=== PATIENT | male | born 1975 | race Caucasian/White ===

== ENCOUNTER 2018-12-17 16:39 | Inpatient (IN) ==
--- NOTE | 2018-12-17 16:41 | Pre-Sedation Evaluation ---
Pre-sedation evaluation - Pre-sedation checklist Date of procedure: 12/17/18 Procedure: [facility] Recent Vitals: vs as documented in emr H&P (including ROS) documented in medical record: Yes Previous reaction to sedatives/anesthetics: No Dietary Status: unknown Airway Assessment: Patient can open mouth completely, TMJ function normal ASA Classification *see protocol: CLASS V-Morbid complications, operation only hope of survival, [id number] to any of the above to indicate emergent Plan of Care: Pt appropriate candidate for procedure/moderate/conscious sedation, Risks/benefits of procedure/sedation discussed w/ patient/family, If not NPO; Risk of intake outweiged by necessity to perform procedure Cardiac Registry (Cardio Only) - Functional Capacity Functional Capacity: >=4 METS with symptoms - Clincal Frailty Scale Clinical Frailty Scale: Managing Well
[2018-12-17] MEDS ORDERED: *HR* FentaNYL (PF) 100 MCG/2 ML VIAL ONE (16:43)
[2018-12-17] MEDS ORDERED: Verapamil 5 MG/2 ML VIAL ONE (16:43)
[2018-12-17] MEDS ORDERED: *HR* Midazolam HCl 2 MG/2 ML VIAL ONE (16:43)
[2018-12-17] MEDS ORDERED: Heparin 1,000 UNITS/500 mL 500 ML ONE (16:44)
[2018-12-17] MEDS ORDERED: *HR* Heparin 10,000 UNIT/10 ML VIAL ONE (16:44)
[2018-12-17] MEDS ORDERED: ISOVUE-370 200 ML INFUS..BTL ONE (16:44)
[2018-12-17] MEDS ORDERED: Tirofiban 12.5 MG/250ML 0 MG/0 ML BAG ONE (16:44)
[2018-12-17] MEDS ORDERED: Nitroglycerin 1,000 MCG/10 ML VIAL IV ONE (16:44)
[2018-12-17] MEDS ORDERED: 0.9 % Sodium Chloride 1,000 ML ONE (16:44)
--- NOTE | 2018-12-17 16:44 | Cardiology History & Physical ---
Date of Encounter: 12/18/18 Time of Encounter: 16:40 Assessment and Plan (1) ST elevation (STEMI) myocardial infarction Current Visit: No Status: Acute A/R/B of [facility] dw patient including 1% chance of recurrent GA//CVA/CABG/JIA/bleeding. Pt aware and agreeable with proceeding. DAPT, heparin, EF assessment, cardiac rehab. Total critical care time: 90 minutes The assessment and plan as outlined above was discussed with the patient and/or family members who expressed understanding and agreement. All questions were answered. Qualifiers: Involved coronary artery: left circumflex coronary artery Qualified Code(s): I21.21 - ST elevation (STEMI) myocardial infarction involving left circumflex coronary artery (2) Nicotine dependence Current Visit: No Status: Acute Smoking cessation counseled. The assessment and plan as outlined above was discussed with the patient and/or family members who expressed understanding and agreement. All questions were answered. Qualifiers: Nicotine product type: cigarettes Substance use status: uncomplicated Q ualified Code(s): F17.210 - Nicotine dependence, cigarettes, uncomplicated (3) HTN (hypertension) Current Visit: Yes Status: Acute The assessment and plan as outlined above was discussed with the patient and/or family members who expressed understanding and agreement. All questions were answered. Qualifiers: Hypertension type: essential hypertension Qualified Code(s): I10 - Essential (primary) hypertension History of Present Illness Chief complaint: chest pain HPI: Mr. Kelley is a 43 year old male with no previous cardiac history, HTN, smoker presenting with acute onset left sided chest pain that is severe and associated with diaphoresis. It worsened in ED despite aspirin and EKG concerning for lateral STEMI. cath lab technologist activated. Past Med Surg Social Fam HX - Past Medical History Medical history: other Additional medical history: varicose veins-BLE,obese edema,SOB,chest pain,tobacco. Psychiatric history: no psych history - Past Surgical History Additional surgical history: rotator cuff tear repair right,Bilateral lef vein stripping,heart cath-no stents - Social History Smoking Status: Light tobacco smoker Smokeless Tobacco Status: No Alcohol use: rarely Drug use: none Medications and Allergies Gabapentin [Neurontin] 600 mg PO TID 04/07/17 [History] OxyCODONE Immed Rel [Roxicodone 5 MG] 5 mg PO Q6HR PRN #30 tablet 04/08/17 [Rx] Allergy/AdvReac Type Severity Reaction Status Date / Time No Known Allergies Allergy Verified 04/07/17 06:53 All Systems Review: The remainder of the systems were reviewed and are negative - Constitutional Constitutional: no chills, no fatigue - EENT Eyes: no blurred vision, no loss of vision Nose, mouth and throat: no dysphagia, no odynophagia - Cardiovascular Cardiovascular: chest pain at rest, chest pain with exertion - Respiratory Respiratory: no hemoptysis, no wheezing - Gastrointestinal Gastrointestinal: no hematemesis, no hematochezia - Genitourinary Genitourinary: no hematuria, no nocturia - Musculoskeletal Musculoskeletal: no abnormal gait, no back pain - Integumentary Integumentary: no rash, no unusual bruising - Neurological Neurological: no syncope, no tingling - Psychiatric Psychiatric: no hallucinations, no panic attacks - Hematological/Lymphatic Hematologic/Lymphatic: no easy bleeding, no easy bruising Physical Examination General: Conversant, Other (mild distress) HEENT: Atraumatic Neck: No JVD Cardiac: Reg Rate and Rhythm Lungs: Normal Breath Sounds Neuro: Alert and responsive Abdomen: Soft Skin: No rashes noted on visualized skin Musculoskeletal: No Chest Wall Tenderness Extremities: No Edema Results 12/18/18 04:03 12/18/18 05:45 - EKG Interpretation EKG results cardiology: personally reviewed, sinus rhythm (lateral current of injury w inf st dep)
[2018-12-17] MEDS ORDERED: Nitroglycerin 0.4 MG TAB.SUBL SL PRN (16:55)
[2018-12-17] MEDS ORDERED: Ondansetron 4 MG/2 ML VIAL IVP PRN (16:55)
--- NOTE | 2018-12-17 18:42 | Invasive Diagnostic Lab Proc ---
Name: Tj Kelley Date of Study: 12/17/2018 Date: 1975 Ht: 70.1in Medical Record#: [id number] Age: 43 Wt: 249.12lb Gender: Male BSA: 2.29 Order #: [id number] BMI: 35.66 Physicians Procedure Physician: Matt Wallace MD, [facility] Referring MD: Referring MD: Staff Name Position Time In Sites, Rosie RT (R) Scrub 05:02 PM Talon Moore RT (R) Monitor 05:03 PM Soren Downing RN Jet Engine Mechanic 05:03 PM Tanisha Miles RN Jet Engine Mechanic 05:03 PM Indications Indication ACS <= 24 hrs Procedures Performed Procedure L HRT ARTERY/VENTRICLE ANGIO Pre-Procedure Checklist Informed consent is complete signed and on chart. H&P is on chart. ID band is on and ID verified with patient. Patient NPO for procedure The procedure was described for the patient and questions were answered. Blood Pressure: 166/105 ECG is on chart. Rhythm: NSR Plan of Care Patient will tolerate the procedure without complications. Adequate level of comfort will be maintained. Hemodynamics will remain stable Patient will recover from procedure without complications. Respiratory function will be maintained. Cardiac rhythm will remain stable. Patient temperature will be maintained. Patient and/or family have verbalized understanding of the procedure. Patient Education Chief Complaint/Reason for Test: Cardiac Cath Developmental Category: Adult (18-64 years) Developmentally Appropriate for Age: Yes Learning Barriers: None Education Needs: Procedure Education Method: Verbal Information Taught: Cardiac Cath Educational Evaluation: Able to repeat information Intravenous Access Time IV Size Location DC'd Fluid/Drip Rate Units RN 06:05 PM 18g 1 1/4" Patent On Arrival Rt Antecubital 06:05 PM 20g 1 1/4" Patent On Arrival Lt Antecubital 0.9NaCl ml/hr Soren Downing RN Allergies No Known Allergies Vital Signs Time BP (mmHg) HR (bpm) O2 Sat. RR (bpm) LOC / % 5 = Fully awake and oriented or at pre-proc level 06:03 PM / % 5 = Fully awake and oriented or at pre-proc level 06:03 PM / % 4 = Oriented but drowsy 06:08 PM 139 / 102 68 98 % 15 06:11 PM 166 / 105 87 94 % 06:15 PM 160 / 106 88 93 % 06:20 PM 158 / 94 96 95 % 28 06:18 PM / % 5 = Fully awake and oriented or at pre-proc level Procedural Medications Time Medication Dose Units Method Given By 06:06 PM Oxygen 2 L/min nasal cannula Tanisha Miles RN 06:09 PM Versed 2 mg Intravenous Soren Downing RN 06:09 PM Fentanyl 50 mcg Intravenous Soren Downing RN 06:12 PM Lidocaine 2% 0.5 ml Subcutaneous Matt Wallace MD, FACC 06:14 PM Heparin 4000 units Nitroglycerin 200 mcg Verapamil 2.5 mg Intraarterial Matt Wallace MD, FACC 06:18 PM Hydralazine 10 mg Intravenous Soren Downing RN ASA Classification: CLASS IV- Severe systemic that is constant threat to patient's life Ross Score Preprocedure Postprocedure Activity 2- Moves 4 extremities sustained head lift Activity 2- Moves 4 extremities sustained head lift Circulation 2- SBP +/= 20 points of pre-anesthetic level Circulation 2- SBP +/= 20 points of pre-anesthetic level Consciousness 2- Awake and alert oriented x 3 Consciousness 2- Awake and alert oriented x 3 O2 Saturation 2- Able to maintain O2 satruation of 92% on room air O2 Saturation 2- Able to maintain O2 satruation of 92% on room air Respiratory 2- Able to deep breathe and cough well Respiratory 2- Able to deep breathe and cough well Total Score 10 Total Score 10 Contrast Agent: Isovue Diagnostic Contrast: 49 ml Total Contrast: 49 ml Fluoro Dose: 27 mGy Procedure Log Time Note Enter By 05:03 PM Yamila, Rosie RT (R) Position: Scrub Time in: 17:02 [email or web address] 05:03 PM Talon Moore RT (R) Position: Monitor Time in: 17:03 [email or web address] 05:03 PM Soren Downing RN Position: Jet Engine Mechanic Time in: 17:03 [email or web address] 05:03 PM Tanisha Miles RN Position: Jet Engine Mechanic Time in: 17:03 [email or web address] 05:49 PM Patient charges- Angio tray pack, Navilyst 3mm J, Pulse Oximetry and ACIST tubing and transducer [email or web address] 06:03 PM Pt arrived to laboratory immunologist 2 at 18:02 [email or web address] 06:03 PM Case Delayed No [email or web address] 06:03 PM Time: 18:03 Patient comfortable and pain free: Yes [email or web address] 06:03 PM Time: 18:03LOC: 5 = Fully awake and oriented or at pre-proc level : PM CathStat 06:05 PM Physician arrived 18:05 : PM ASA Class CLASS IV- Severe systemic that is constant threat to patient's life bw: PM Meet and greet completed : PM Sign in performed according to hospital policy. Informed consent was obtained. : PM Procedure start 18: : PM Clinical Presentation: STEMI or equivalent : PM Hair removed from procedure site in procedure lab using clippers. Right wrist and Right groin prepped with Chloraprep by Rosie Driscoll (Gina), then patient was draped. Skin intact. : PM Time: 18:06 Oxygen on at 2 L/min per nasal cannula by Tanisha Miles RN [facility] [place] 06:07 PM Vitals capture started with the following parameters, Patient=Adult, Interval=5 min, Initial Othkqihs=307 mmHg, Deflation Rate=3 mmHg, Cuff placed on Right Arm 06:08 PM HR=68 bpm, CKDM=108/102 mmhg, SpO2=98.0 %, Resp=15 B/min 06:09 PM Time: 18:09 Versed 2 mg Intravenous Given by Soren Downing RN [place] [id number] 06:09 PM Time: 18:09 Fentanyl 50 mcg Intravenous Given by Soren Downing RN [place] [address] 06:09 PM Recorded ECG: HR=99 Condition=Condition 1 06:09 PM Vitals capture stopped. 06:09 PM Vitals capture started with the following parameters, Patient=Adult, Interval=5 min, Initial Qomrohbi=368 mmHg, Deflation Rate=3 mmHg, Cuff placed on Right Arm 06:11 PM HR=87 bpm, WXQO=967/105 mmhg, SpO2=94.0 % 06:12 PM Time out was performed according to hospital policy. Conscious sedation and anesthesia was achieved (see medication log with in this report above) 06:12 PM Critical cardiac patient with acute IN was brought emergently to the cardiac labor relations supervisor for immediate coronary angiography and intervention if clinically indicated. 06:12 PM Time: 18:12 0.5 ml Lidocaine 2% to right radial Subcutaneous Given by Matt Wallace MD, [facility] 06:13 PM Pressure channel 1 zeroed. 06:13 PM Access obtained by percutaneous puncture. 6Fr 10cm Terumo Glidesheath sheath placed in right Radial artery. [id number] [email or web address] 06:13 PM 0.035 260cm Navilyst 3mmJ wire [id number] bw 06:14 PM Time: 18:14 Patient given 4,000 units Heparin, 200 mcg Nitroglycerin, and 2.5 mg Verapamil Intraarterial by Matt Wallace MD, [facility]. This is given to reduce risk of vessel spasm and thrombosis. bw 06:15 PM HR=88 bpm, TDSL=764/106 mmhg, SpO2=93.0 % 06:16 PM 5Fr TIG catheter inserted over the wire [facility] 06:16 PM LCA angiography performed in multiple views. bw 06:16 PM Recorded Pressure: Ao, HR=89, Condition=Condition 1 (Aorta) Ao 139/99/115 06:18 PM Time: 18:03 Patient comfortable and pain free: Yes [email or web address] 06:18 PM Time: 18:03LOC: 4 = Oriented but drowsy [email or web address] 06:18 PM Time: 18:18 Hydralazine 10 mg Intravenous Given by Soren Downing RN bw 06:18 PM RCA angiography performed in multiple views. [email or web address] 06:18 PM Coronary Dominance: Left [email or web address] 06:19 PM Lesion found in Proximal LAD. Pre Stenosis: 30 Pre REDD Flow: [email or web address] 06:19 PM Proximal Left Anterior Descending Coronary Artery with 30% stenosis. If graft is supplying this territory, 0 % stenosis. [email or web address] 06:19 PM Lesion found in Mid LAD. Pre Stenosis: 20 Pre REDD Flow: [email or web address] 06:19 PM Mid/Distal Left Anterior Descending Coronary Artery and diagonal branches with 20% stenosis. If graft is supplying this area, 0 % stenosis [email or web address] 06:20 PM Lesion found in Right PDA. Pre Stenosis: 30 Pre REDD Flow: [email or web address] 06:20 PM Right Coronary, Right Posterior Descending Arteries with Right Posterolateral and Acute Marginal branches with 30 % stenosis. If graft is supplying this area, 0 % stenosis [email or web address] 06:20 PM Catheter removed [email or web address] 06:20 PM 5Fr Pigtail catheter inserted over the wire [facility] 06:20 PM HR=96 bpm, ZIKL=056/94 mmhg, SpO2=95.0 %, Resp=28 B/min 06:21 PM Catheter crossed the aortic valve and was selectively placed in the left ventricle. Pressures recorded on pullback for left heart catheterization. bw 06:21 PM Bolus angiogram of left Ventricle complete: 10 ml/sec for a total of 30 mls [email or web address] 06:21 PM Recorded Pressure: LV, HR=95, Condition=Condition 1 (Left Ventricle) LV 140/1/18 06:21 PM Recorded Pressure: LV, Ao, HR=94, Condition=Condition 1 (Left Ventricle) LV 167/35/69, (Aorta) Ao 143/87/110 06:22 PM Catheter removed [email or web address] 06:22 PM Arterial sheath pulled, Vasc Band closure device used and was Successful S/N. bw 06:23 PM Procedure completed at 18:23 12/17/2018 [email or web address] 06:24 PM Sign out completed: Radiation Dose 185.47 mGy, 27.1 Gy/cm2 Fluoro Time: 1.3 Isovue 370 - 200ml contrast 49 ml given by Matt Wallace MD, [facility]. Complications: None. The patient was discharged out of the labor relations supervisor in stable condition. Sedation minutes 17. Cardiac Rehab Consult needed: No. Confirmed administered medications: Yes [email or web address] 06:24 PM Isovue 370 - 200ml,1 Bottle(s) used. [email or web address] 06:24 PM 12 ml air in Vasc Band. [email or web address] 06:24 PM Estimated Blood Loss: minimal [email or web address] 06:24 PM Post ECG NSR [email or web address] 06:25 PM Post Blood Pressure 158/94 [email or web address] 06:25 PM 18:25 Post Pulses Rt Radial 1+ [email or web address] 06:25 PM 18:25 Post Pulses Bilateral DP & PT 1+ [email or web address] 06:25 PM Information taught Cardiac Cath and Vasc Band [email or web address] 06:26 PM Education needs Procedure, Plan of Care, and Disease Process [email or web address] 06:26 PM Learning barriers :Sedated [email or web address] 06:26 PM Education Methods Verbal [email or web address] 06:26 PM Education evaluation Needs further instruction [email or web address] 06:26 PM Site status No bleeding/ No Hematoma - Rt Wrist as reported by Sites, Rosie RT (R) at 18:26 [email or web address] 06:26 PM Delay to floor No [email or web address] 06:26 PM Family placed in consult room. [email or web address] 06:26 PM Complications: None [email or web address] 06:29 PM Patient out of room: 18:29 [email or web address] 06:31 PM Report given to ijeoma JAMA Pt taken to 2N Room #9. 18:31 [email or web address] 06:33 PM Time: 18:18 Patient comfortable and pain free: Yes [email or web address] 06:33 PM Time: 18:18LOC: 5 = Fully awake and oriented or at pre-proc level [email or web address] Complications Complication None None Hemodynamics Pressures Site Systolic/A Wave Diastolic/V Wave Mean AO 139 99 115 LV 140 1 18 LV 167 35 69 AO 143 87 110 Post Procedure Information Blood Pressure: 158/94 mmHg Rhythm: NSR Post procedural instructions were given Closure Device Time Device Success/Fail 12/17/2018 6:22:00 PM Mechanical Compression Successful Site Checks Time Location Status Staff Sheath In? Note 06:26 PM Rt Wrist No bleeding/ No Hematoma Sites, Rosie RT (R) Pulses Time Site Pre-Procedure Post-Procedure Note 12/17/2018 6:10:00 PM Rt Radial 1+ 6:25:00 PM Rt Radial 1+ 6:25:00 PM Bilateral DP & PT 1+ Updated by Talon Moore RT (R) on 12/17/2018 6:35:23 PM Talon Moore RT electronically signed on 12/17/2018 6:35:42 PM with status of Final
[2018-12-17] MEDS ORDERED: *HR* Ticagrelor 90 MG TABLET PO SCH (21:00)
[2018-12-18 04:46] LABS: Basophils # 0.1 K/mcL (0.0-0.2); Basophils % 0.8 %; Eosinophils # 0.1 K/mcL (0.0-0.6); Eosinophils % 1.1 %; Hematocrit 48.7 % (37.5-50.1); Immature Granulocytes % 0.2 % (0-4); Lymphocytes # 2.6 K/mcL (0.6-4.6); Lymphocytes % 28.8 %; Mean Corpuscular HGB Conc 34.9 g/dL (31.6-35.5); Mean Corpuscular Hemoglobin 31.5 pg (28.0-33.3); Mean Corpuscular Volume 90.4 fL (83.0-100.0); Mean Platelet Volume 10.3 fL (9.4-12.4); Monocytes # 0.8 K/mcL (0.0-1.3); Neutrophils # 5.4 K/mcL (1.6-8.9); Platelet Count 194 K/mcL (140-400); Red Blood Count 5.39 M/mcL (4.19-5.50); Red Cell Distribution Width 13.5 % (11.5-14.5); Segmented Neutrophils % 60.1 %
[2018-12-18 06:19] LABS: BUN/Creatinine Ratio 11 (6-26); Blood Urea Nitrogen 10 mg/dL (6-20); Calcium 9.2 mg/dL (8.6-10.3); Carbon Dioxide 27 mEq/L (23-29); Chloride 102 mEq/L (98-107); Glucose 112 mg/dL (70-105); Osmolality,Calculated 282 (280-300); Sodium 136 mEq/L (136-145); eGFR For African Americans > 60 (> 60); eGFR For Non-African Americans > 60 (> 60)
--- NOTE | 2018-12-18 07:02 | Event Note ---
Date of Encounter: 12/19/18 Time of Encounter: 19:00 - Cardiology Event Note Mild CAD. Hyperdynamic EF. ST changes possibly related to HTN
[2018-12-18] MEDS: Aspirin 81 MG TAB.CHEW PO SCH (08:49)
--- NOTE | 2018-12-18 15:54 | Cardiology Progress Note ---
Date of Encounter: 12/18/18 Time of Encounter: 11:00 Assessment and Plan (1) Elevated troponin Current Visit: Yes Status: Acute aborted type I NC vs type II or vs non-coronary etiology. Preserved LVEF. - cycle trop - D dimer - c/w DAPT, statin, BB (2) Abnormal ECG Current Visit: Yes Status: Acute ddx aborted NC, non-coronary etiolgy - ECG am (3) CAD (coronary artery disease) Current Visit: Yes Status: Acute mild epicardial LAD and LPDA disease on [facility], possible aborted STEMI with microvascular disease and spasm - c/w ASA/plavix, statin, BB - if recurrent cp, add imdur or CCB Qualifiers: Coronary Disease-Associated Artery/Lesion type: elim ira artery [place] vs. transplanted heart: elim ira heart Associated angina: angina presence unspecified Qualified Code(s): I25.10 - Atherosclerotic heart disease of elim ira coronary artery without angina pectoris (4) Chest pain Current Visit: Yes Status: Acute aborted NC or non-coronary etiology. No recurrence. - D dimer r/o PE/Ao dissection - add imdur or CCB if cp recurrence Qualifiers: Chest pain type: chest pain due to myocardial ischemia Ischemic chest pain type: unspecified angina pectoris type Qualified Code(s): I25.9 - Chronic ischemic heart disease, unspecified (5) HTN (hypertension) Current Visit: Yes Status: Acute Qualifiers: Hypertension type: essential hypertension Qualified Code(s): I10 - Essential (primary) hypertension Discussion w patient/family: The assessment and plan as outlined above was discussed with the patient and/or family members who expressed understanding and agreement. All questions were answered. Thank you for involving us in the care of your patient. Please call with any questions. Subjective Principal diagnosis: chest pain Interval history: No complaints. No chest pain recurrence. Trop [id number] TTE LVEF 65%. Normal LV chamber size, wall thickness and function. Normal right ventricular structure and function. No significant valvular dysfunction. Unable to estimate RVSP due to lack of TR jet. [id number] [facility] Coronary Dominance: Left Lesion Findings/Interventions * Left Main Coronary Artery The LMCA is angiographically free of disease. * Left Anterior Descending There is a 30% stenosis in the Proximal LAD. There is a 20% stenosis in the Mid LAD. * Circumflex The Circumflex is angiographically free of disease. The 1st Marginal is angiographically free of disease. The R PDA has mild disease * Right Coronary Artery No significant disease Objective Other: General: NAD, AAO, cogent HEENT: anicteric Neck: no JVD, no bruits Chest: CTA B/L, no W/R/C Heart: RR, S1/S2, no S3/S4, no M/G/R Abdominal: BS +, soft, ND, NT Peripheral Pulses: radial pulse 2+ B/L, DP 1+ B/L Skin/Extremities: no cyanosis, chronic B/L LE edema due to varicose veins Neurological: grossly non-focal. Results 12/18/18 04:03 12/18/18 05:45 Lab Results 12/18/18 12/18/18 12/18/18 04:03 05:45 09:58 WBC 9.0 Hgb 17.0 H Hct 48.7 Plt Count 194 D-Dimer Sodium 136 Potassium 4.0 Chloride 102 Carbon Dioxide 27 BUN 10 Creatinine 0.92 Glucose 112 H Calcium 9.2 Troponin I 3.09 H* 12/18/18 13:38 WBC Hgb Hct Plt Count D-Dimer 353 Sodium Potassium Chloride Carbon Dioxide BUN Creatinine Glucose Calcium Troponin I - Imaging and Cardiology Echo: report reviewed, image reviewed Cardiac cath: report reviewed, image reviewed Other Results: Tele reviewed, no events - EKG Interpretation EKG results cardiology: personally reviewed Consult Discharge Plan - Plan Referrals: NONE,PCP [Primary Care Provider] -
[2018-12-18] MEDS: *HR* Heparin 5,000 UNIT/ML VIAL SQ SCH (17:35)
[2018-12-19] MEDS: *HR* Heparin 5,000 UNIT/ML VIAL SQ SCH (05:10)
[2018-12-19 07:27] VITALS: BP 150/85
[2018-12-19] MEDS: Aspirin 81 MG TAB.CHEW PO SCH (08:10)
--- NOTE | 2018-12-19 09:33 | Discharge Summary ---
Date of Encounter: 12/19/18 Time of Encounter: 09:30 - Discharge Diagnosis (1) ST elevation (STEMI) myocardial infarction Priority: Primary Status: Ruled-out Qualifiers: Involved coronary artery: left circumflex coronary artery Qualified Code(s): I21.21 - ST elevation (STEMI) myocardial infarction involving left circumflex coronary artery (2) Elevated troponin Priority: Primary Status: Acute - Hospital Course Hospital course: Mr. 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 [facility] with Mild CAD. Hyperdynamic EF. ST changes possibly related to HTN. STEMI ruled out. Troponins 3.09, 2.41. TTE LVEF 65%.Normal LV chamber size, wall thickness and function. Normal right ventricular structure and function. No significant valvular dysfunction. Unable to estimate RVSP due to lack of TR jet. No recurrent chest pain. Labs and vitals stable. Recommend continuing DAPT (ASA and Plavix) x 1 month given troponin rise. Continue Statin, BB. DDimer WNL. D/C home in stable condition. Will coordinate outpt follow-up. Right radial access site healing well. No bleeding, hematoma or ecchymosis noted. Restrictions discussed. - Time Spent with Patient Total time spent providing and/or coordinating discharge services: Less than 30 minutes - Discharge Medications Prescriptions: New Aspirin 81 mg PO DAILY #30 tab.chew Rosuvastatin [Crestor] 40 mg PO HS #30 tablet Metoprolol [Lopressor] 25 mg PO BID #60 tablet Clopidogrel [Plavix] 75 mg PO DAILY #30 tablet Continued Testosterone Cypionate [Depo-Testosterone] 1 ml IM Q2W Home Medications: Testosterone Cypionate [Depo-Testosterone] 1 ml IM Q2W 12/18/18 [History] Aspirin 81 mg PO DAILY #30 tab.chew 12/19/18 [Rx] Clopidogrel [Plavix] 75 mg PO DAILY #30 tablet 12/19/18 [Rx] Metoprolol [Lopressor] 25 mg PO BID #60 tablet 12/19/18 [Rx] Rosuvastatin [Crestor] 40 mg PO HS #30 tablet 12/19/18 [Rx] Allergies/Adverse Reactions: Allergy/AdvReac Type Severity Reaction Status Date / Time chicken derived Allergy See Verified 12/18/18 16:02 Comments Date of admission: 12/17/18 18:11 Primary care physician: PCP NONE Consults: 12/17/18 16:55 Consult to Cardiac Rehabilitation-Phase1 [CONS] Routine Comment: Reason for Consult: AMI Call Completed: Yes Consult to Nurse Navigator [CONS] Routine Comment: Discharging clinician: Peewee Blanco Anticipated date of discharge: 12/19/18 Physical Examination Vital Signs, Last 4 Hours Temp Pulse Resp BP Pulse Ox 12/19/18 08:24 76 18 95 12/19/18 08:19 79 12/19/18 07:25 98.1 F 93 17 150/85 93 Vital Signs Temp Pulse Resp BP Pulse Ox 12/19/18 08:24 76 18 95 12/19/18 08:19 79 12/19/18 07:25 98.1 F 93 17 150/85 93 12/19/18 03:03 98.7 F 76 19 144/79 94 12/18/18 23:49 98.5 F 75 18 131/78 95 12/18/18 20:45 98.5 F 74 17 153/97 93 12/18/18 19:39 74 12/18/18 16:26 98.1 F 70 18 135/66 94 12/18/18 11:13 98.1 F 67 18 141/83 93 Intake and Output 12/18/18 12/19/18 12/19/18 23:59 07:59 15:59 Intake Total 840 / 1200 120 / 140 20 / 140 Balance 840 / 1200 120 / 140 20 / 140 Intake: Oral 840 / 1200 120 / 140 20 / 140 Other: Meal Dinner Percent of Meal Consumed 100% Weight 160.8 kg Patient Weight 12/19/18 23:59 Weight 160.8 kg General: Conversant, No Apparent Distress HEENT: Atraumatic, Normocephaly, Mucus Membranes Moist Neck: No JVD, Normal carotid pulses Cardiac: Reg Rate and Rhythm, Normal S1 and S2, No Murmur Lungs: Normal Breath Sounds, No Wheeze, Rales, Rhonchi Neuro: Alert and responsive, No focal deficits noted Abdomen: Soft, Non-Tender Skin: Other (right radial access site healing well. No bleeding, hematoma or ecchymosis noted.) Musculoskeletal: No Chest Wall Tenderness Extremities: No Clubbing, No Cyanosis, No Edema, Normal Pulses - Patient Status Disposition: Home, Self-Care Condition: Fair Functional capacity at discharge: independent ambulation Overall status at discharge: patient is progressing back to baseline - Discharge Instructions Follow Up With: NONE,PCP [Primary Care Provider] - Additional Instructions: RISK FACTORS: STOP SMOKING: If you smoke, STOP. Smoking or tobacco use significantly increases your risk of heart disease because nicotine causes the arteries to narrow or constrict. It also causes fats to stick to the artery. Your chances of having a heart attack are greatly increased if you continue to smoke. For more information, call the education line for smoking cessation 1-053-[id number] EAT A LOW FAT/CHOLESTEROL/SODIUM DIET: This diet may help reduce your chances of having a heart attack. LIFTING: With affected extremity: Avoid bending, pushing off and lifting more than 2 pounds for 24 hours The following 48 hours, avoid lifting anything more than 5 pounds Avoid strenuous activity or repetitive motions ACTIVITY: You may walk or climb stairs as tolerated You can resume sexual activity as tolerated In general, you are encouraged to engage in a minimum of 30 minutes or more of moderate intensity physical activity, such as brisk walking, daily or at least 3-4 times weekly BATHING Do not submerge the site into water (bath tub, hot tub, swimming pool, dishes) for 1 week. This can be a source for infection into the blood stream. You may shower after 24 hours SITE CARE: After 24 hours, you may remove the dressing and leave the site open to air. Keep the site clean and dry. Clean gently and pat dry. You can expect bruising and tenderness that gradually resolve within a week or two. Return to work as instructed per your physician Resume driving as instructed per physician Keep all scheduled follow up appointments Resume medications as instructed IMPORTANT: If prescribed a Platelet Aggregation Inhibitor such as, Plavix, Brilinta or Effient: Duration of therapy is minimum one year These medications are often used in combination with Aspirin in prevention of future heart attacks Never discontinue unless consult with your Manager Merchandising STROKE (CVA) Risk factors for a stroke are: Age, cigarette smoking, diabetes, excessive alcohol consumption, family history, high blood pressure, overweight, physical inactivity, prior stroke, heart attack, diagnosis of carotid artery stenosis or other artery disease. Warning signs: Sudden numbness or weakness of the face, arm or leg; especially on one side of the body, sudden confusion, trouble speaking or understanding, sudden trouble seeing in one or both eyes, sudden trouble walking, dizziness, loss of balance or coordination, sudden severe headache with no cause. Call 911 or go to the Emergency Room. CONGESTIVE HEART FAILURE: If you have been diagnosed with Congestive Heart Failure (CHF) and your symptoms return, make an appointment with your physician Weigh yourself daily. Notify your physician if you have a weight gain of two or more pounds in one day or five or more pounds in one week. If you experience any difficulty breathing, please call 911 BLEEDING: Although the risk of bleeding is minimal, it can happen. If you have any bleeding from the site, apply firm pressure above the puncture site for 10-15 minutes. If the bleeding does not stop, continue manual pressure and call 911 CARDIAC REHABILITATION: If you have had a heart attack or cardiac stents placed, please ask your lending consultant if Cardiac Rehabilitation is right for you. Cardiac Rehabilitation is recommended, beneficial to your health and can improve the following: strengthen your heart, improve ejection fraction, weight reduction, decrease cholesterol levels, lower blood pressure, lower blood sugar, improve stamina and enhance self-image. If you have any questions please call [facility] at [phone]. Contact [facility] ( ) if: You develop a fever greater than 101 degrees Fahrenheit Your site becomes reddened or has any drainage You have an increase in pain or burning at the site or if a large knot forms at the site. If you experience chest pain, shortness of breath, dizziness, or extreme tiredness, stop the activity and rest. Please notify [facility] office if you experience any of these symptoms and they are not relieved by rest please call 911! - Diet and Activity Activity: increase activity as tolerated Diet: advance to your usual diet
== END 2018-12-19 10:49 | disposition home or self-care (01) | DRG 191 ==
LOC: ICNU 18:11 → 2NNU 18:27
PROVIDERS: ADMIT Emergency Medicine; ATTEND Emergency Medicine